=== PATIENT | female | born 1945 | race African-American/Black ===

== ENCOUNTER 2018-01-13 12:36 | Emergency (ER) | payer OTHER, MEDICAID ==
[~2018-01-13] VITALS: Ht 154.9 cm; Wt 92.5 kg
[2018-01-13 12:43] VITALS: BP_SYST 120
[2018-01-13 13:05] VITALS: BP_SYST 145
[2018-01-13] MEDS ORDERED: KETAMINE 30 MG/3 ML SYRINGE IVP ONE (13:15)
[2018-01-13] MEDS ORDERED: fentaNYL CITRATE/PF 100 MCG/2 ML AMP IVP ONE ×2 (13:15→14:00)
[2018-01-13] MEDS ORDERED: KETOROLAC TROMETHAMINE 60 MG/2 ML VIAL IM ONE (14:45)
[2018-01-13] MEDS ORDERED: KETOROLAC TROMETHAMINE 30 MG VIAL IVP ONE (16:00)
== END 2018-01-13 17:05 | disposition home or self-care (01) ==
LOC: SED 12:36
DX: M54.32 Sciatica, left side (principal); G89.29 Other chronic pain; E11.40 Type 2 diabetes mellitus with diabetic neuropathy, unspecified; I10 Essential (primary) hypertension
CPT/HCPCS: 93971; 96374; 96375; 99284; J1885; J3010

== ENCOUNTER 2018-04-10 12:46 | Inpatient (IN) | payer OTHER, MEDICAID ==
[~2018-04-10] VITALS: Ht 157.5 cm; Wt 86.2 kg
[2018-04-10 12:50] VITALS: BP_SYST 126
[2018-04-10] MEDS ORDERED: NACL 0.9% 1,000 ML IV ONE (13:07)
[2018-04-10] MEDS ORDERED: INSULIN REGULAR, HUMAN 10 UNITS/0.1 ML INJ IVP ONE (13:15)
[2018-04-10 13:35] LABS: BASOPHILS # (AUTO) 0.1 K/uL (0.0-0.2); BASOPHILS % (AUTO) 1.4 % (0.0-2.0); HEMATOCRIT 42.2 % (36-48); HEMOGLOBIN 13.4 g/dL (12.0-16.0); LYMPHOCYTES # (AUTO) 1.7 K/uL (1.0-5.5); LYMPHOCYTES % (AUTO) 16.2 % (20.5-51.5); MEAN CORPUSCULAR HEMOGLOBIN 27 pg (27-31); MEAN CORPUSCULAR HGB CONC 32 % (32-36); MEAN CORPUSCULAR VOLUME 85 fL (79.0-98.0); MONOCYTES # (AUTO) 0.6 K/uL (0.0-1.0); MONOCYTES % (AUTO) 5.6 % (1.7-9.3); NEUTROPHILS # (AUTO) 8.2 K/uL (1.8-7.7); NEUTROPHILS % (AUTO) 76.8 % (40.0-70.0); PLATELET COUNT (AUTO) 314 K/uL (130-430); RED BLOOD CELL COUNT(AUTO) 4.96 MIL/uL (4.2-6.2); RED CELL DISTRIBUTION WIDTH 14.4 % (9.0-15.0); WHITE BLOOD COUNT (AUTO) 10.6 K/uL (4.8-10.8)
[2018-04-10 13:42] LABS: ANION GAP 9 (5-15); CALCIUM 10.2 mg/dL (8.4-11.0); CHLORIDE 101 mmol/L (98-107); CREATININE 1.06 mg/dL (0.55-1.30); SODIUM SERUM 137 mmol/L (136-145); UREA NITROGEN, BLOOD 17 mg/dL (8-21)
[2018-04-10 13:50] LABS: PROTHROMBIN TIME 10.1 SECS (9.5-12.5)
[2018-04-10 13:57] LABS: ALANINE AMINOTRANSFERASE 24 U/L (12-78); ALBUMIN 3.7 g/dL (3.4-4.8); AMYLASE 24 U/L (0-100); ASPARTATE AMINOTRANSFERASE 16 U/L (10-37); LIPASE 92 U/L (73-393); THYROID STIMULATING HORMONE 2.61 uIu/mL (0.34-4.82)
[2018-04-10] MEDS ORDERED: ONDANSETRON HCL 4 MG/2 ML VIAL IVP ONE (14:00)
[2018-04-10] MEDS ORDERED: MORPHINE 4 MG/ML INJ. SYRINGE IVP ONE (14:00)
[2018-04-10 14:05] LABS: GLUCOSE 406 mg/dL (70-99)
[2018-04-10] MEDS ORDERED: MULT-976 PO (14:41)
[2018-04-10] MEDS ORDERED: HYDR-3610 PO (14:41)
[2018-04-10] MEDS ORDERED: NEU300 PO (14:41)
[2018-04-10] MEDS ORDERED: LOSA100T3 PO (14:41)
[2018-04-10] MEDS ORDERED: INSU100V9 SQ (14:41)
[2018-04-10] MEDS ORDERED: OMEG1CAP PO (14:41)
[2018-04-10] MEDS ORDERED: ASPI-1153 PO (14:41)
[2018-04-10] MEDS ORDERED: VITA400C19 PO (14:41)
[2018-04-10] MEDS ORDERED: MELO15TA13 PO (14:41)
[2018-04-10] MEDS ORDERED: CALC-823 PO (14:41)
[2018-04-10] MEDS ORDERED: LEVO25TA7 PO (14:41)
[2018-04-10] MEDS ORDERED: GLU500 PO (14:41)
[2018-04-10] MEDS ORDERED: LOVA40TA75 PO (14:41)
[2018-04-10] MEDS ORDERED: HYDR25TA4 PO (14:41)
[2018-04-10] MEDS ORDERED: DONE10TA44 PO (14:41)
[2018-04-10] MEDS ORDERED: IBUP-1969 PO (14:41)
[2018-04-10] MEDS ORDERED: TIZA4TAB11 PO (14:41)
[2018-04-10] MEDS ORDERED: MULT-1100 PO (14:41)
[2018-04-10] MEDS ORDERED: CYM30 PO (14:41)
[2018-04-10 14:51] LABS: BLOOD, URINE NEGATIVE (NEGATIVE); CLARITY/URINE CLEAR (CLEAR); COLOR,URINE AMBER (YELLOW); GLUCOSE,URINE 2+ (NEGATIVE); KETONES,URINE TRACE (NEGATIVE); NITRITE, URINE NEGATIVE (NEGATIVE); PROTEIN URINE TRACE (NEGATIVE)
[2018-04-10 14:59] LABS: LEUKOCYTE ESTERASE ,URINE 1+ (NEGATIVE)
[2018-04-10 15:01] LABS: BACTERIA,URINE FEW /HPF (None Seen); BILIRUBIN,URINE 1+ (NEGATIVE); MUCUS,URINE 1+ /LPF (None Seen); RBC,URINE 0-3 /HPF (0-3)
[2018-04-10] MEDS ORDERED: cefTRIAXone 1 GM IVPB PREMIX 50 ML IV ONE (15:15)
[2018-04-10 16:00] VITALS: BP_SYST 136
[2018-04-10 16:06] VITALS: BP_SYST 136
[2018-04-10] MEDS ORDERED: DEXTROSE 50%-WATER 50 ML DISP.SYRIN IVP PRN ×2 (16:30)
[2018-04-10] MEDS ORDERED: GLUCOSE 15 GM GEL (in 37.5 GM TUBE) PO PRN ×2 (16:30)
[2018-04-10] MEDS: HYDROcodone/ACETAMIN 10-325 MG TAB PO PRN ×2 (16:45→22:17)
[2018-04-10] MEDS: INSULIN REGULAR, HUMAN 100 UNITS/ML, 10 ML VIAL (novoLIN R) SUBCUT PRN ×2 (17:04→20:33)
[2018-04-10] MEDS: KCL 20 mEq in 0.45% NS 1000 mL 1,000 ML IV SCH (17:29)
[2018-04-10 20:00] VITALS: BP_SYST 125
[2018-04-10] MEDS: ENOXAPARIN SODIUM 40 MG/0.4 ML SYRINGE SUBCUT SCH (20:33)
[2018-04-10 23:15] VITALS: BP_SYST 137
[2018-04-11] MEDS: HYDROcodone/ACETAMIN 10-325 MG TAB PO PRN ×5 (02:28→23:50)
[2018-04-11] MEDS: KCL 20 mEq in 0.45% NS 1000 mL 1,000 ML IV SCH ×2 (04:24→19:04)
[2018-04-11] MEDS: INSULIN REGULAR, HUMAN 100 UNITS/ML, 10 ML VIAL (novoLIN R) SUBCUT PRN ×4 (06:04→21:14)
[2018-04-11 08:00] VITALS: BP_SYST 151
[2018-04-11] MEDS: cefTRIAXone 1 GM in D5W 50 ML IV SCH (08:33)
[2018-04-11 12:34] VITALS: BP_SYST 140
[2018-04-11] MEDS ORDERED: LIDOCAINE PATCH 5% 1 EA TP ONE (16:00)
[2018-04-11 16:49] VITALS: BP_SYST 137
[2018-04-11 19:50] VITALS: BP_SYST 154
[2018-04-11] MEDS: ENOXAPARIN SODIUM 40 MG/0.4 ML SYRINGE SUBCUT SCH (21:15)
[2018-04-12 00:33] VITALS: BP_SYST 145
[2018-04-12] MEDS: INSULIN REGULAR, HUMAN 100 UNITS/ML, 10 ML VIAL (novoLIN R) SUBCUT PRN ×3 (06:36→17:31)
[2018-04-12] MEDS: HYDROcodone/ACETAMIN 10-325 MG TAB PO PRN ×2 (06:41→17:35)
[2018-04-12] MEDS: KCL 20 mEq in 0.45% NS 1000 mL 1,000 ML IV SCH ×2 (07:30→09:32)
[2018-04-12 08:00] VITALS: BP_SYST 147
[2018-04-12] MEDS ORDERED: LIDOCAINE PATCH 5% 1 EA TP SCH (09:00)
[2018-04-12] MEDS: cefTRIAXone 1 GM in D5W 50 ML IV SCH (09:22)
[2018-04-12 12:11] VITALS: BP_SYST 151
[2018-04-12 16:33] VITALS: BP_SYST 146
[2018-04-12 18:45] VITALS: BP_SYST 147
== END 2018-04-12 19:40 | disposition home or self-care (01) | DRG 689 ==
LOC: SED 12:46 → STU 15:29
PROVIDERS: ADMIT Family Medicine; ATTEND Family Medicine
DX: N39.0 Urinary tract infection, site not specified (principal); G93.41 Metabolic encephalopathy; G89.29 Other chronic pain; E03.9 Hypothyroidism, unspecified; I10 Essential (primary) hypertension; M19.012 Primary osteoarthritis, left shoulder; E11.40 Type 2 diabetes mellitus with diabetic neuropathy, unspecified; E11.65 Type 2 diabetes mellitus with hyperglycemia; M19.011 Primary osteoarthritis, right shoulder; Z79.899 Other long term (current) drug therapy; Z79.4 Long term (current) use of insulin; Z79.82 Long term (current) use of aspirin; Z98.84 Bariatric surgery status
CPT/HCPCS: 36415; 71045; 80053; 81000-TC; 82150-TC; 82550-TC; 82962; 83605; 83690-TC; 83880; 84443-TC; 84479; 84484; 85025; 85379; 85610-TC; 85730-TC; 87040-TC; 87086; 93005; 96365; 96375; 97110-GP; 97116-GP; 97530-GP; 99285; J0696; J1650; J1815; J2270; J2405; J3480; J7030; J7060